=== PATIENT | female | born 2000 | race Hispanic/Latino ===

== ENCOUNTER 2022-10-11 09:08 | Emergency (ER) | payer BC ==
[~2022-10-11] VITALS: Ht 157.5 cm; Wt 59.9 kg
[2022-10-11] MEDS ORDERED: SODIUM CHLORIDE 0.9% 1000ML 1,000 ML IV STA (09:47)
[2022-10-11] MEDS ORDERED: SODIUM CHLORIDE 0.9% 1000ML 1,000 ML ONE (09:58)
[2022-10-11] MEDS ORDERED: ONDANSETRON HCL INJ 2MG/ML 2ML 2 MG/ML VIAL ONE (09:58)
[2022-10-11] MEDS ORDERED: KETOROLAC TROMETHAMINE 30 MG/ML VIAL ONE (09:58)
[2022-10-11] MEDS ORDERED: FAMOTIDINE 20 MG/2 ML VIAL IV ONE ×2 (09:59→10:00)
[2022-10-11] MEDS ORDERED: ONDANSETRON HCL INJ 2MG/ML 2ML 2 MG/ML VIAL IV ONE (10:00)
[2022-10-11] MEDS ORDERED: KETOROLAC TROMETHAMINE 30 MG/ML VIAL IV ONE (10:00)
[2022-10-11] MEDS ORDERED: POTASSIUM CHLORIDE 20 MEQ TAB CR PO ONE ×2 (10:15→10:43)
[2022-10-11] MEDS ORDERED: PIPERACILLIN/TAZOBACTAM 3.375 GM VIAL ONE (10:44)
[2022-10-11] MEDS ORDERED: SODIUM CHLORIDE 0.9% 100 ML ONE (10:44)
[2022-10-11] MEDS ORDERED: IOPAMIDOL 370 MG/ML 100 ML INFUS..BTL INJ ONE (11:02)
[2022-10-11] MEDS ORDERED: METRONIDAZOLE500 MG PO (11:12)
[2022-10-11] MEDS ORDERED: CIPRO500 MG PO (11:12)
[2022-10-11 11:33] VITALS: BP 101/72
== END 2022-10-11 11:34 | disposition home or self-care (01) ==
LOC: FSED 09:23
DX: R10.11 Right upper quadrant pain (principal); K52.9 Noninfective gastroenteritis and colitis, unspecified; J45.909 Unspecified asthma, uncomplicated
CPT/HCPCS: 74177; 80048; 80076; 81003; 85025; 87400; 96374; 96375; 96376; 99284; J1885; J2405; J2543; J7030; J7050; Q9967